=== PATIENT | male | born 1950 | race Two or more races ===

== ENCOUNTER 2016-11-21 08:52 | Emergency (ER) | payer BC, OTHER ==
[~2016-11-21] VITALS: Ht 152.4 cm; Wt 73.9 kg
[2016-11-21] MEDS ORDERED: Mylanta II UD 30ml ORAL ONE (09:15)
[2016-11-21] MEDS ORDERED: Dicyclomine HCl 10mg/5ml oral soln ORAL ONE (09:15)
[2016-11-21] MEDS ORDERED: Lidocaine 2% Visc 15ml soln ORAL ONE (09:15)
--- NOTE | 2016-11-21 09:18 | Emergency Room Report ---
History of Present Illness General Chief Complaint: Abdominal Pain Source: Patient Present Illness HPI Patient presents with complaints of epigastric abdominal pain Ongoing for the past 7 days Denies any vomiting or diarrhea Denies any chest pain or short of breath He does feel that the pain goes towards his back however Denies any neuropathy in the upper or lower extremities Patient feels that he has gastritis and reflux He complains of a burning sensation Denies any previous surgeries Allergies: Coded Allergies: No Known Allergies (Unverified , 11/21/16) Patient History Past Medical History: see triage record Pertinent Family History: none Reviewed Nursing Documentation: PMH: Agreed, PSxH: Agreed Nursing Documentation-PM Past Medical History: No Stated History Review of Systems All Other Systems: negative except mentioned in HPI Physical Exam Vital Signs Date Time Temp Pulse Resp B/P (MAP) Pulse Ox O2 Delivery O2 Flow Rate FiO2 11/21/16 08:57 97.7 84 14 121/79 99 Room Air Sp02 EP Interpretation: reviewed, normal General Appearance: well appearing, no apparent distress Head: normocephalic, atraumatic Eyes: bilateral eye PERRL, bilateral eye EOMI ENT: hearing grossly normal, normal pharynx, TMs + canals normal, uvula midline Neck: full range of motion, supple, no meningismus, no bony tend Respiratory: lungs clear, normal breath sounds, no rhonchi, no respiratory distress, no retraction, no accessory muscle use Cardiovascular #1: normal peripheral pulses, regular rate, rhythm, no edema, no gallop, no JVD, no murmur Gastrointestinal: normal bowel sounds, non tender - However subjectively points to the epigastric region, soft, no mass, no organomegaly, non-distended, no guarding, no hernia, no pulsatile mass, no rebound Genitourinary: no CVA tenderness Musculoskeletal: normal inspection Neurologic: oriented x3, responsive, lot worker III-XII nml as tested, motor strength/ tone normal, sensory intact Psychiatric: mood/affect normal Skin: normal color, no rash, warm/dry, palpation normal Lymphatic: normal inspection, no adenopathy Medical Decision Making Labs Test 11/21/16 09:25 White Blood Count 6.5 K/UL (4.8-10.8) Red Blood Count 4.57 M/UL (4.70-6.10) Hemoglobin 15.2 G/DL (14.2-18.0) Hematocrit 43.3 % (42.0-52.0) Mean Corpuscular Volume 95 FL (80-99) Mean Corpuscular Hemoglobin 33.2 PG (27.0-31.0) Mean Corpuscular Hemoglobin Concent 35.1 G/DL (32.0-36.0) Red Cell Distribution Width 11.0 % (11.6-14.8) Platelet Count 240 K/UL (150-450) Mean Platelet Volume 8.4 FL (6.5-10.1) Neutrophils (%) (Auto) 75.2 % (45.0-75.0) Lymphocytes (%) (Auto) 16.7 % (20.0-45.0) Monocytes (%) (Auto) 6.9 % (1.0-10.0) Eosinophils (%) (Auto) 0.4 % (0.0-3.0) Basophils (%) (Auto) 0.8 % (0.0-2.0) Sodium Level 140 mEQ/L (135-145) Potassium Level 3.9 mEQ/L (3.4-4.9) Chloride Level 102 mEQ/L (98-107) Carbon Dioxide Level 28 mEQ/L (20-30) Anion Gap 10 (5-15) Blood Urea Nitrogen 10 mg/dL (7-23) Creatinine 1.2 mg/dL (0.7-1.2) Estimat Glomerular Filtration Rate > 60 mL/min (>60) Glucose Level 132 mg/dL (74-106) Calcium Level 9.2 mg/dL (8.6-10.2) Total Bilirubin 0.6 mg/dL (0.0-1.2) Aspartate Amino Transf (AST/SGOT) 42 U/L (5-40) Alanine Aminotransferase (ALT/SGPT) 70 U/L (3-41) Alkaline Phosphatase 79 U/L (40-129) Total Protein 7.1 g/dL (6.6-8.7) Albumin 4.1 g/dL (3.5-5.2) Globulin 3.0 g/dL Albumin/Globulin Ratio 1.3 (1.0-2.7) Lipase 47 U/L (< 60) Last Vital Signs Date Time Temp Pulse Resp B/P (MAP) Pulse Ox O2 Delivery O2 Flow Rate FiO2 11/21/16 08:57 97.7 84 14 121/79 99 Room Air Scripts Mag Hydrox/Al Hydrox/Simeth (MAALOX MAXIMUM STRENGTH SUSP) 355 Ml Oral.susp 10 ML PO Q8HR, #355 ML Prov: CHASE GUEVARA D.O. 11/21/16 Pantoprazole* (PROTONIX*) 40 Mg Tablet. 40 MG ORAL DAILY, #30 TAB Prov: CHASE GUEVARA D.O. 11/21/16 CHASE GUEVARA D.O. Nov 21, 2016 09:18
[2016-11-21 09:37] LABS: BASOPHILS % (AUTO) 0.8 % (0.0-2.0); EOSINOPHILS % (AUTO) 0.4 % (0.0-3.0); LYMPHOCYTES % (AUTO) 16.7 % (20.0-45.0); MEAN CORPUSCULAR HEMOGLOBIN 33.2 PG (27.0-31.0); MEAN CORPUSCULAR HGB CONC 35.1 G/DL (32.0-36.0); MEAN CORPUSCULAR VOLUME 95 FL (80-99); MEAN PLATELET VOLUME 8.4 FL (6.5-10.1); MONOCYTES % (AUTO) 6.9 % (1.0-10.0); NEUTROPHILS % (AUTO) 75.2 % (45.0-75.0); PLATELET COUNT 240 K/UL (150-450); RED BLOOD COUNT 4.57 M/UL (4.70-6.10); WHITE BLOOD COUNT 6.5 K/UL (4.8-10.8)
[2016-11-21 09:59] VITALS: BP 105/60
[2016-11-21 10:07] LABS: ALANINE AMINOTRANSFERASE 70 U/L (3-41); ALBUMIN/GLOBULIN RATIO 1.3 (1.0-2.7); ANION GAP 10 (5-15); ASPARTATE AMINO TRANSFERASE 42 U/L (5-40); CALCIUM 9.2 mg/dL (8.6-10.2); CARBON DIOXIDE 28 mEQ/L (20-30); CHLORIDE 102 mEQ/L (98-107); CREATININE 1.2 mg/dL (0.7-1.2); GLOMERULAR FILTRATION RATE > 60 mL/min (>60); HEMOLYSIS 1; LIPASE 47 U/L (< 60); POTASSIUM 3.9 mEQ/L (3.4-4.9); SODIUM 140 mEQ/L (135-145); TOTAL PROTEIN 7.1 g/dL (6.6-8.7)
[2016-11-21] MEDS ORDERED: PROTONIX40 MG ORAL (10:42)
[2016-11-21] MEDS ORDERED: MAALOX MAXIMUM355 M1 PO (10:43)
[2016-11-21 10:55] VITALS: BP 110/86
--- NOTE | 2016-11-23 15:55 | Cardiology Report ---
APPROVED REPORT EKG Measurement Heart [id number] Normal sinus rhythm Low voltage QRS Borderline ECG
== END 2016-11-21 11:00 | disposition home or self-care (01) ==
LOC: EMR 09:15
DX: R10.13 Epigastric pain (principal)
CPT/HCPCS: 36415; 80053; 83690; 85025; 93005; 99284